=== PATIENT | female | born 1955 | race Caucasian/White ===

== ENCOUNTER 2018-05-29 09:02 | Day surgery (SDC) | payer BC ==
[~2018-05-29 09:02] MED LIST: ACETAMINOPHEN 1,000 MG/100 ML BTL IV ONE; CEFAZOLIN 2 Gram 2 GM/50 ML BAG IVPB ONE
[2018-05-29] MEDS ORDERED: KETOROLAC 30 MG/ML VIAL IVP ONE (09:03)
[2018-05-29] MEDS ORDERED: DEXAMETHASONE 4 MG/ML 1ML VIAL IVP ONE (09:03)
[2018-05-29] MEDS ORDERED: BUPIVACAINE 0.5% (5MG/ML) PF 30ML VIAL IVP ONE (09:03)
[2018-05-29] MEDS ORDERED: EPHEDRINE SULFATE 50 MG/ML ML IV ONE (09:03)
[2018-05-29] MEDS ORDERED: MIDAZOLAM HCL 2MG/2ML VIAL IV ONE (09:03)
[2018-05-29] MEDS ORDERED: MORPHINE SULFATE PF 10MG/10ML VIAL IV ONE (09:03)
[2018-05-29] MEDS ORDERED: LIDOCAINE 2% MDV (20MG/ML) 20ML VIAL IV ONE (09:03)
[2018-05-29] MEDS ORDERED: BUPIVACAINE 0.5% W/EPI MPF 30 ML VIAL IVP ONE (09:03)
[2018-05-29] MEDS ORDERED: BUPIVACAINE LIPOSOME/PF 133MG/10ML VIAL IV ONE (09:03)
[2018-05-29] MEDS ORDERED: METHYLPREDNISOLONE 40MG/VIAL IM ONE (09:03)
[2018-05-29] MEDS ORDERED: SEVOFLURANE 250 ML INH ONE (09:03)
[2018-05-29] MEDS ORDERED: PROPOFOL 10 MG/ML VIAL IV ONE (09:03)
--- NOTE | 2018-06-01 15:03 | Operative Note ---
DATE OF SURGERY: 05/29/18 PREOPERATIVE DIAGNOSIS: IMPINGEMENT SYNDROME, RIGHT SHOULDER, QUESTION TEAR OF THE ROTATOR CUFF. POSTOPERATIVE DIAGNOSES: 1. DIFFUSE SYNOVITIS, RIGHT SHOULDER. 2. 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 3. PROFOUND EXTERNAL IMPINGEMENT, RIGHT SHOULDER. 4. ADVANCED ARTHROSIS, RIGHT DISTAL CLAVICLE. PROCEDURE: 1. RIGHT SHOULDER ARTHROSCOPY WITH INTRA-ARTICULAR DEBRIDEMENT WITH COMPLETE SYNOVECTOMY. 2. RIGHT SHOULDER ACROMIOPLASTY, CA LIGAMENT RESECTION SUBACROMIAL BURSECTOMY. 3. RIGHT SHOULDER DISTAL CLAVICLE RESECTION. STAFF SURGEON: JAY JAY BRIDGES M.D. ANESTHESIA: GENERAL. PREPARATION: CHLORAPREP. INDIVIDUAL CONSIDERATIONS: NONE. PROCEDURE: The patient was taken to the Operating Room and placed supine on the operating table. She had a successful induction of a general anesthetic. She was then placed in a semi-seated beach chair position and her right arm and shoulder were prepped and draped in the usual fashion. Examination under anesthesia showed no instability. The patient had a posterior portal identified for arthroscopy. The skin was infiltrated with 0.5% Marcaine with Epinephrine prior. An #18-gauge spinal needle was easily placed in the joint and the joint was inflated with normal saline. A stab wound was made and a blunt-tipped trocar for the scope was placed inside the joint and the joint was inflated with normal saline. An anterior accessory portal was then made just inferior to the intact long head of the biceps tendon in a retrograde fashion with a Wissinger laverne and the joint was irrigated out. The patient had diffuse synovitis, which was debrided, grade 3 change on the humeral head and glenoid. The cup underneath looked contused but otherwise intact; just covered with synovitis and this was debrided. No loose bodies in the pouch inferiorly just synovitis, which was debrided. After irrigation, portals were closed with xuan. The patient had an anterior approach to the subacromial space and distal clavicle. The skin was again infiltrated with 0.5% Marcaine with Epinephrine prior. Sharp dissection was carried down through the skin and subcutaneous tissue. Small veins were coagulated with a Bovie. An anterior deltoid interval was developed and care was taken not to split the deltoid more than about 4 cm distal to the anterior tip of the acromion to prevent injury to the axillary nerve. Once in the subacromial space, the patient had an extremely tight subacromial space, huge spurs anteriorly on the acromion and from the distal clavicle. CA ligament was resected. The distal clavicle was resected using an oscillating saw taking about a centimeter. The patient had a fairly pronounced down slope and acromial spur. An anterior acromioplasty was performed taking about a centimeter most lifting spur tapering to wedge posteromedially using an oscillating saw. To include the spurs at the AC joint, the undersurface was smoothed with a rasp. The patient had a highly thickened and septated bursa and this was all debrided out. I now had a good look at the rotator cuff, which looked contused but was not torn. After irrigation, I went ahead and injected about 30 mg of DepoMedrol and 5 mL of Marcaine with Epi into the joint through a sterile 25-gauge needle and then I reattached the deltoid to the remaining acromion with multiple #2 Vicryl going directly through the bony acromion. The periosteal cuff and distal clavicle were closed with running #2 Vicryl. The anterior deltoid interval was closed with running #1 Vicryl, the subcut was closed with 2-0+ Vicryl, and the skin was closed with running 3-[address] did place the needle in the subacromial space. I injected about 15 mL of 0.5% Marcaine with Epinephrine along with the remaining 10-15 mg of DepoMedrol and 10 mg of Morphine and a sterile Bulkee compressive dressing and sling were applied. The patient tolerated the procedures well. Needle and sponge counts were correct. Estimated blood loss was minimal and she was taken back to Recovery in good condition. There were no complications. JOB NUMBER: [id number] [facility]
== END 2018-05-29 15:15 | disposition home or self-care (01) ==
LOC: SUR 09:02
PROVIDERS: ATTEND Orthopaedic Surgery
DX: M75.41 Impingement syndrome of right shoulder (principal); M65.811 Other synovitis and tenosynovitis, right shoulder; M94.211 Chondromalacia, right shoulder; M19.011 Primary osteoarthritis, right shoulder; E78.00 Pure hypercholesterolemia, unspecified; G47.33 Obstructive sleep apnea (adult) (pediatric); G35 Multiple sclerosis
CPT/HCPCS: 29821; 23125; 23130; 01630; J1885; J0690; C9290; J1030